=== PATIENT | female | born 1975 | race Asian ===

== ENCOUNTER 2019-06-29 06:43 | Inpatient (IN) | payer MEDICAID ==
[~2019-06-29] VITALS: Ht 154.9 cm; Wt 56.9 kg
[2019-06-29 07:37] LABS: BASOPHIL % 0.3 % (0-2); PLATELET COUNT 215 x10^3mcL (130-400); RED CELL DISTRIBUTION WIDTH 17.6 % (11.5-14.5)
[2019-06-29 07:40] LABS: CALCIUM 8.6 mg/dL (8.5-10.1); CARBON DIOXIDE 31.1 mmol/L (21-32); CREATININE SERUM 1.1 mg/dL (0.6-1.0); POTASSIUM SERUM 3.9 mmol/L (3.5-5.1)
[2019-06-29 07:45] LABS: BILIRUBIN TOTAL 1.44 mg/dL (0.20-1.00); TOTAL PROTEIN, SERUM 7.5 g/dL (6.4-8.2)
[2019-06-29 07:48] LABS: ALBUMIN 2.9 g/dL (3.4-5.0)
[2019-06-29 07:52] LABS: UA SPECIFIC GRAVITY 1.015 (1.005-1.035); microscopic required? YES; urine erythrocyte 1+ (NEGATIVE)
[2019-06-29 08:23] LABS: AMPHETAMINE QUAL UR POSITIVE (See below)
[2019-06-29 10:16] LABS: MAGNESIUM 1.9 mg/dL (1.8-2.4)
[2019-06-29 10:26] LABS: CHOLESTEROL/HDL RATIO 7.9; PHOSPHOROUS 4.5 mg/dL (2.5-4.9)
[2019-06-29 14:42] VITALS: BP 144/95
[2019-06-29 14:44] VITALS: Ht 154.9 cm; Wt 56.9 kg
[2019-06-29 17:46] LABS: microscopic required? YES; urine erythrocyte TRACE (NEGATIVE)
[2019-06-29 17:59] VITALS: BP 138/96
[2019-06-29 23:09] VITALS: BP 131/98
[2019-06-30 05:38] VITALS: BP 142/87
[2019-06-30 07:04] LABS: BASOPHIL % 0.5 % (0-2); PLATELET COUNT 214 x10^3mcL (130-400)
[2019-06-30 07:07] LABS: RED CELL DISTRIBUTION WIDTH 17.4 % (11.5-14.5)
[2019-06-30 07:11] LABS: CALCIUM 8.7 mg/dL (8.5-10.1); CARBON DIOXIDE 33.6 mmol/L (21-32); CREATININE SERUM 1.1 mg/dL (0.6-1.0); POTASSIUM SERUM 4.5 mmol/L (3.5-5.1)
[2019-06-30 08:03] LABS: FREE T4 1.55 ng/dL (0.76-1.46)
[2019-06-30 08:23] VITALS: BP 120/69
[2019-06-30 12:28] VITALS: BP 117/82
[2019-06-30 16:32] VITALS: BP 121/71
[2019-06-30 20:34] VITALS: BP 114/78
[2019-07-01 05:38] VITALS: BP 105/64
[2019-07-01 06:45] LABS: CALCIUM 8.3 mg/dL (8.5-10.1); CARBON DIOXIDE 33.9 mmol/L (21-32); CREATININE SERUM 1.1 mg/dL (0.6-1.0); POTASSIUM SERUM 4.4 mmol/L (3.5-5.1)
[2019-07-01 07:35] LABS: BASOPHIL % 0.3 % (0-2); PLATELET COUNT 211 x10^3mcL (130-400)
[2019-07-01 07:38] LABS: RED CELL DISTRIBUTION WIDTH 17.6 % (11.5-14.5)
[2019-07-01 08:14] VITALS: BP 120/81
[2019-07-01 12:34] VITALS: BP 94/62
[2019-07-01 17:05] VITALS: BP 120/81
[2019-07-01 20:13] VITALS: BP 108/75
[2019-07-02 06:05] VITALS: BP 118/73
[2019-07-02 06:38] LABS: CALCIUM 8.5 mg/dL (8.5-10.1); CARBON DIOXIDE 32.2 mmol/L (21-32); CREATININE SERUM 1.1 mg/dL (0.6-1.0); POTASSIUM SERUM 4.3 mmol/L (3.5-5.1)
[2019-07-02 07:06] LABS: BASOPHIL % 0.4 % (0-2); PLATELET COUNT 254 x10^3mcL (130-400)
[2019-07-02 07:27] LABS: RED CELL DISTRIBUTION WIDTH 17.2 % (11.5-14.5)
[2019-07-02 07:51] VITALS: BP 117/74
[2019-07-02] MEDS ORDERED: LIPI20 PO (08:35)
[2019-07-02] MEDS ORDERED: ZES5 PO (08:35)
[2019-07-02] MEDS ORDERED: CARVEDILOL12.5 M1 PO (08:35)
[2019-07-02] MEDS ORDERED: ECO81 PO (08:36)
[2019-07-02] MEDS ORDERED: L40 PO (08:36)
[2019-07-02 12:41] VITALS: BP 117/74
[2019-07-02 12:49] VITALS: BP 110/71
== END 2019-07-02 19:15 | disposition home or self-care (01) | DRG 194 ==
LOC: ED 06:43 → DU 09:29 → MU 09:29 → DU 14:25 → MU 07-01 17:28
PROVIDERS: Emergency Medicine; Internal Medicine Cardiovascular Disease; ADMIT Internal Medicine
DX: I11.0 Hypertensive heart disease with heart failure (principal); I42.0 Dilated cardiomyopathy; F15.288 Other stimulant dependence with other stimulant-induced disorder; I50.23 Acute on chronic systolic (congestive) heart failure; E11.9 Type 2 diabetes mellitus without complications; E78.5 Hyperlipidemia, unspecified; Z68.23 Body mass index [BMI] 23.0-23.9, adult; Z22.322 Carrier or suspected carrier of Methicillin resistant Staphylococcus aureus
CPT/HCPCS: 83880; 84439; 87804; G0378; J1940; Q0092